=== PATIENT | male | born 1985 | race Caucasian/White ===

== ENCOUNTER 2023-04-18 20:18 | Emergency (ER) | payer BC ==
--- OUTSIDE RECORDS SUMMARY | 2023-04-18 20:22 | XMS REPORT | Continuity of Care Document ---
:1985 Author Organization [facility] t Address [address] [place] [address] [place] [id number] Care Team Providers Name Role Phone PABLO MONIQUE Primary Care Physician Unavailable PABLO MONIQUE Attending Clinician Unavailable KHADAR MCDOWELL Attending Clinician Unavailable IQRA BARBOUR Attending Clinician Unavailable Martinez SUH, Awilda Patel Attending Clinician [phone] Fadia Zarate Attending Clinician Jose Reza MD Attending Clinician Iqra Barbour OD Attending Clinician TE Attending Clinician Unavailable JOSE REZA Attending Clinician Unavailable Bianca Pham MD Attending Clinician BIANCA PHAM Attending Clinician Unavailable GAYATRI SHEPARD Attending Clinician Unavailable Gayatri Redman Attending Clinician LAB47 Attending Clinician Unavailable Pablo Monique MD Attending Clinician CONNOR HOANG Attending Clinician Unavailable Only, Adc Test Attending Clinician Unavailable Rigoberto Flores MD Attending Clinician Raúl Montero MD Attending Clinician Doctor Unassigned, Katie Attending Clinician Unavailable GAYATRI SHEPARD Admitting Clinician Unavailable Payers Payer Name Policy Type Policy Number Effective Date Expiration Date Vu holt [employer] OF 9 [id number] 2018 [place] ([place]-[employer] 00:00:00 CAPITATED) [facility] [id number] 2019 00:00:00 Problems Condition Condition Condition Status Onset Resolution Last Treating Co mments Source Name Details Category Date Date Treatment Clinician Date Current Current Disease Active 2021-08 Neena moderate moderate 1- Seybol 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:00: - major major 00 Externa depressive depressive l disorder disorder without without prior prior episode episode Myopia of Myopia of Disease Active 2020-08 Joseph sey both eyes both eyes 2-29 Seyb old 00:00: - 00 Externa l Stress at Stress at Disease Active Joseph sey work - Not work - Not 3-08 Se ybold Controlled Controlled 00:00: - 00 Externa l History of History of Disease Active K elsey vasectomy vasectomy 2-11 Seyb old 00:00: - 00 Externa l Bilateral Bilateral Disease Active Joseph sey varicocele varicocele 2-11 Se ybold s s 00:00: - 00 Externa l No known No known Disease Unive rs active active ity of problems problems [facility] Allergies, Adverse Reactions, Alerts Allergy Allergy Status Severity Reaction(s) Onset Inactive Treating Comm ents Source Name Type Date Date Clinician NO KNOWN Drug Active Univers ALLERGIE Class ity of S [facility] Social History Social Habit Start Date Stop Date Quantity Comments Source Exposure to Not sure University of SARS-CoV-2 [facility] (event) [place] Alcohol intake 2022-07-11 2022-07-11 Current drinker Elizabeth y Seybold - 00:00:00 00:00:00 of alcohol External (finding) Tobacco use and 2015-05-22 2015-05-22 Smokeless tobacco Ke arlyn Seybold - exposure 00:00:00 00:00:00 non-user External Sex Ass[birth year] At [birth year] Universit y of 00:00:00 00:00:00 [facility] Smoking Status Start Date Stop Date Source Former smoker 2017-04-20 00:00:00 2017-04-20 00:00:00 [facility] Never smoked tobacco Neena Seyb old - External Medications Ordered Filled Start Stop Current Ordering Indication Dosage Frequency Signature Comments Components Source Medication Medication Date Date Medication? Clinician (SIG) Name Name Sertraline 2021-08 Yes [id number] 50mg Take 1 K elsey HCl 50 MG 1-01 tablet (50 Seyb old oral Tablet 00:00: mg total) - 00 by mouth Externa daily l Sertraline 2021-08 Yes [id number] 50mg Take 1 K elsey HCl 50 MG 1-01 tablet (50 Seyb old oral Tablet 00:00: mg total) - 00 by mouth Externa daily l Doxycycline Yes [id number] 100mg Take 1 Neena Hyclate 100 01-06 [id number] tablet Seyb old MG oral 00:00: (100 mg Tablet 00 total) by mouth in the morning and 1 tablet (100 mg total) in the evening. Mupirocin Yes [id number] Apply 1 Neena (BACTROBAN) 01-06 [id number] applicatio Seybold 2 % apply 00:00: n externally 00 topically Ointment 2 times daily Doxycycline 2021- No [id number] 100mg Take 1 Neena Hyclate 100 01-06 [id number] tablet Sey bold MG oral 00:00: 00:00 (100 mg - Tablet 00 :00 total) by Externa mouth in l the morning and 1 tablet (100 mg total) in the evening. Mupirocin 2021- No [id number] Apply 1 Neena (BACTROBAN) 01-06 [id number] applicatio Seybold 2 % apply 00:00: 00:00 n - externally 00 :00 topically Exte rna Ointment 2 times l daily Ibuprofen 2021- No Take by Rama oliva (ADVIL OR) 4-20 04-20 mouth Seybold 08:18: 00:00 24 :00 Ibuprofen 2021-0 Yes [id number] 800mg Q.25D Take 1 Neena 800 MG oral 4-20 tablet Seybol d Tablet 00:00: (800 mg - 00 total) by Externa mouth l every 6 hours as needed for pain Take with Meals, STOP IF UPSET STOMACH Ibuprofen Yes [id number] 800mg Q.25D Take 1 Neena 800 MG oral 4-20 tablet Seybol d Tablet 00:00: (800 mg - 00 total) by Externa mouth l every 6 hours as needed for pain Take with Meals, STOP IF UPSET STOMACH Ibuprofen Yes [id number] 800mg Q.25D Take 1 Neena 800 MG oral 4-20 tablet Seybol d Tablet 00:00: (800 mg 00 total) by mouth every 6 hours as needed for pain Take with Meals, STOP IF UPSET STOMACH Ibuprofen Yes [id number] 800mg Q.25D Take 1 Neena 800 MG oral 4-20 tablet Seybol d Tablet 00:00: (800 mg 00 total) by mouth every 6 hours as needed for pain Take with Meals, STOP IF UPSET STOMACH Ibuprofen 2020-08 Yes Take by Kelse y (ADVIL OR) 2-29 mouth Seybold 08:26: 21 Ibuprofen 2020-08 Yes Take by Kelse y (ADVIL OR) 2-15 mouth Seybold 09:28: 08 Ibuprofen 2020-08 Yes Take by Kelse y (ADVIL OR) 2-06 mouth Seybold 13:20: 48 HYDROcodone 2020-08- No 1{tbl} 1 tablet, Univers -acetaminop 2-04 12-04 Oral, ity of hen (NORCO 20:30: 19:27 ONCE, 1 Joe as 5) 5-325 mg 00 :00 dose, On Medi sunny tablet 1 Sat Branch tablet 07/06/21 at 1430, CYRUS Acetaminoph 2020-08 Yes 1{tbl} Q4H Take 1 Ke lsey en-Codeine 2-04 tablet by Seyb old 300-30 MG 00:00: mouth oral Tablet 00 every 4 hours as needed Naproxen 2020-08 Yes 500mg Take 500 Rama ey 500 MG oral 2-04 mg by Seybold Tablet 00:00: mouth 2 00 times daily (with meals) Acetaminoph 2020-08 Yes 1{tbl} Q4H Take 1 Ke lsey en-Codeine 2-04 tablet by Seyb old 300-30 MG 00:00: mouth oral Tablet 00 every 4 hours as needed Naproxen 2020-08 Yes 500mg Take 500 Rama ey 500 MG oral 2-04 mg by Seybold Tablet 00:00: mouth 2 00 times daily (with meals) Acetaminoph 2020-08 Yes 1{tbl} Q4H Take 1 Ke lsey en-Codeine 2-04 tablet by Seyb old 300-30 MG 00:00: mouth oral Tablet 00 every 4 hours as needed Naproxen 2020-08 Yes 500mg Take 500 Rama ey 500 MG oral 2-04 mg by Seybold Tablet 00:00: mouth 2 00 times daily (with meals) Naproxen 2020-08 Yes 500mg Take 500 Rama ey 500 MG oral 2-04 mg by Seybold Tablet 00:00: mouth 2 00 times daily (with meals) naproxen 2020-08 Yes [id number] 500mg Take 1 Un ruthie (NAPROSYN) 2-04 tablet by ity of 500 mg 00:00: mouth 2 [place] tablet 00 (two) Medical times Branch daily with meals. acetaminoph 2020-08 Yes [id number] 1{tbl} Take 1 Un ruthie en-codeine 2-04 tablet by ity of 300-30 mg 00:00: mouth [place] tablet 00 every 4 Medical (four) Branch hours as needed for Pain (scale 7-10). Indication s: acute pain Naproxen 2020-08- No 500mg Take 500 Joseph sey 500 MG oral 2-04 06-06 mg by Seybol d Tablet 00:00: 00:00 mouth 2 00 :00 times daily (with meals) Acetaminoph 2020-08- No 1{tbl} Q4H Take 1 K elsey en-Codeine 2-04 04-20 tablet by Sey bold 300-30 MG 00:00: 00:00 mouth oral Tablet 00 :00 every 4 hours as needed Ibuprofen 2020-08 Yes Take by Kelse y (ADVIL OR) 1-04 mouth Seybold 15:21: 13 Amoxicillin 2020- No 1{tbl} Take 1 K elsey -Pot 9-03 11-04 tablet by Seybold Clavulanate 00:00: 00:00 mouth 2 875-125 MG 00 :00 times oral Tablet daily ibuprofen 2016-08 Yes 800mg Take 800 Uni vers (ADVIL) 200 1-08 mg by ity of mg tablet 19:26: mouth [place] 02 every 6 Medical (six) Branch hours as needed. ibuprofen 2017- Yes 800mg Take 800 Uni vers (ADVIL) 200 1-08 mg by ity of mg tablet 19:26: mouth [place] 02 every 6 Medical (six) Branch hours as needed. ibuprofen 2017- Yes 800mg Take 800 Uni vers (ADVIL) 200 1-08 mg by ity of mg tablet 13:26: mouth [place] 02 every 6 Medical (six) Branch hours as needed. ibuprofen 2017- Yes 800mg Take 800 Uni vers (ADVIL) 200 1-08 mg by ity of mg tablet 13:26: mouth [place] 02 every 6 Medical (six) Branch hours as needed. cephALEXin 2017-0 Yes 250mg Take 1 Univ ers (KEFLEX) 9-18 capsule by ity o f 250 mg 00:00: mouth [place] capsule 00 every 6 Medical (six) Branch hours. traMADOL 2017-0 Yes 50mg Take 1 Univers (ULTRAM) 50 9-18 tablet by ity of mg tablet 00:00: mouth [place] 00 every 6 Medical (six) Branch hours as needed for Pain (scale 7-10). cephALEXin 2017-0 Yes 250mg Take 1 Univ ers (KEFLEX) 9-18 capsule by ity o f 250 mg 00:00: mouth [place] capsule 00 every 6 Medical (six) Branch hours. traMADOL 2017-0 Yes 50mg Take 1 Univers (ULTRAM) 50 9-18 tablet by ity of mg tablet 00:00: mouth [place] 00 every 6 Medical (six) Branch hours as needed for Pain (scale 7-10). cephALEXin 2017-0 Yes 250mg Take 1 Univ ers (KEFLEX) 9-18 capsule by ity o f 250 mg 00:00: mouth [place] capsule 00 every 6 Medical (six) Branch hours. traMADOL 2017-0 Yes 50mg Take 1 Univers (ULTRAM) 50 9-18 tablet by ity of mg tablet 00:00: mouth [place] 00 every 6 Medical (six) Branch hours as needed for Pain (scale 7-10). cephALEXin 2017-0 Yes 250mg Take 1 Univ ers (KEFLEX) 9-18 capsule by ity o f 250 mg 00:00: mouth [place] capsule 00 every 6 Medical (six) Branch hours. traMADOL 2017-0 Yes 50mg Take 1 Univers (ULTRAM) 50 9-18 tablet by ity of mg tablet 00:00: mouth [place] 00 every 6 Medical (six) Branch hours as needed for Pain (scale 7-10). Immunizations Ordered Immunization Filled Immunization Date Status Commen ts Source Name Name Influenza Virus 2019-06-28 Completed Neena Se ybold Vaccine, No Preserv, 00:00:00 age 6 months and up Influenza Virus 2019-06-28 Completed Neena Se ybold Vaccine, Unspecified 00:00:00 Formulation Influenza Virus 2019-06-28 Completed Neena Se ybold Vaccine, No Preserv, 00:00:00 - Ex ternal age 6 months and up Influenza Virus 2019-06-28 Completed Neena Se ybold Vaccine, Unspecified 00:00:00 - Ex ternal Formulation Influenza Virus 2019-06-28 Completed Neena Se ybold Vaccine, No Preserv, 00:00:00 - Ex ternal age 6 months and up Influenza Virus 2019-06-28 Completed Neena Se ybold Vaccine, Unspecified 00:00:00 - Ex ternal Formulation Influenza Virus 2019-06-28 Completed Neena Se ybold Vaccine, No Preserv, 00:00:00 age 6 months and up Influenza Virus 2019-06-28 Completed Neena Se ybold Vaccine, Unspecified 00:00:00 Formulation Influenza Virus 2019-06-28 Completed Neena Se ybold Vaccine, No Preserv, 00:00:00 age 6 months and up Influenza Virus 2019-06-28 Completed Neena Se ybold Vaccine, Unspecified 00:00:00 Formulation Influenza Virus 2019-06-28 Completed Neena Se ybold Vaccine, No Preserv, 00:00:00 age 6 months and up Influenza Virus 2019-06-28 Completed Neena Se ybold Vaccine, Unspecified 00:00:00 Formulation Influenza Virus 2019-06-28 Completed Neena Se ybold Vaccine, No Preserv, 00:00:00 age 6 months and up Influenza Virus 2019-06-28 Completed Neena Se ybold Vaccine, Unspecified 00:00:00 Formulation Influenza Virus 2019-06-28 Completed Neena Se ybold Vaccine, No Preserv, 00:00:00 age 6 months and up Influenza Virus 2019-06-28 Completed Neena Se ybold Vaccine, Unspecified 00:00:00 Formulation Tdap- (Boostrix, 2016-04-09 Completed Neena puga Adacel) 00:00:00 Tdap- (Boostrix, 2016-04-09 Completed Neena S eybold Adacel) 00:00:00 - External Tdap- (Boostrix, 2016-04-09 Completed Neena S eybold Adacel) 00:00:00 - External Tdap- (Boostrix, 2016-04-09 Completed Neena S eybold Adacel) 00:00:00 Tdap- (Boostrix, 2016-04-09 Completed Neena S eybold Adacel) 00:00:00 Tdap- (Boostrix, 2016-04-09 Completed Neena S eybold Adacel) 00:00:00 Tdap- (Boostrix, 2016-04-09 Completed Neena S eybold Adacel) 00:00:00 Tdap- (Boostrix, 2016-04-09 Completed Neena S eybold Adacel) 00:00:00 Vital Signs Vital Name Observation Time Observation Value Comments Source Body height 2022-07-11 15:28:00 188 cm Neena olivabold - External Systolic blood 2022-06-03 20:38:00 116 mm[Hg] Neena Seybold - pressure External Diastolic blood 2022-06-03 20:38:00 82 mm[Hg] Kelse y Seybold - pressure External Heart rate 2022-06-03 20:38:00 65 /min Neena olivabold - External Body temperature 2022-06-03 20:38:00 36.28 Josselyn Rama ey Seybold - External Respiratory rate 2022-06-03 20:38:00 16 /min Rama ey Seybold - External Body weight 2022-06-03 20:38:00 98.431 kg Neena olivabold - External BMI 2022-06-03 20:38:00 27.86 kg/m2 Neena Womack eybold - External Systolic blood 2022-01-06 14:17:00 100 mm[Hg] Neena Seybold pressure Diastolic blood 2022-01-06 14:17:00 64 mm[Hg] Kelse y Seybold pressure Heart rate 2022-01-06 14:17:00 68 /min Neena Womack eybold Body temperature 2022-01-06 14:17:00 36.89 Josselyn Rama ey Seybold Respiratory rate 2022-01-06 14:17:00 16 /min Rama ey Seybold Body height 2022-01-06 14:17:00 188 cm Neena S eybold Body weight 2022-01-06 14:17:00 98.431 kg Neena S eybold BMI 2022-01-06 14:17:00 27.86 kg/m2 Neena S eybold Body height 2021-11-20 13:04:00 188 cm Neena S eybold Body weight 2021-11-20 13:04:00 93.895 kg Neena S eybold BMI 2021-11-20 13:04:00 26.58 kg/m2 Neena S eybold Systolic blood 2021-07-17 15:27:00 117 mm[Hg] Neena Seybold pressure Diastolic blood 2021-07-17 15:27:00 78 mm[Hg] Kelse y Seybold pressure Heart rate 2021-07-17 15:27:00 85 /min Neena S eybold Body temperature 2021-07-17 15:27:00 36.44 Josselyn Rama ey Seybold Body weight 2021-07-17 15:27:00 100.245 kg Neena S eybold BMI 2021-07-17 15:27:00 28.37 kg/m2 eNena S eybold Oxygen saturation in 2021-07-17 15:27:00 98 /min Neena Friedmanybold Arterial blood by Pulse oximetry Systolic blood 2021-07-08 19:14:00 122 mm[Hg] Neena Seybold pressure Diastolic blood 2021-07-08 19:14:00 74 mm[Hg] Kelse y Seybold pressure Heart rate 2021-07-08 19:14:00 72 /min Neena S eybold Respiratory rate 2021-07-08 19:14:00 16 /min Rama ey Seybold Body height 2021-07-08 19:14:00 188 cm Neena S eybold Body weight 2021-07-08 19:14:00 98.431 kg Neena S eybold BMI 2021-07-08 19:14:00 27.86 kg/m2 Neena S eybold Systolic blood 2021-07-06 18:56:00 119 mm[Hg] Univer sity of pressure [facility] Diastolic blood 2021-07-06 18:56:00 82 mm[Hg] Unive rsity of [facility] Heart rate 2021-07-06 18:56:00 55 /min Universi ty [facility] Body temperature 2021-07-06 18:56:00 36.67 Josselyn [facility] Respiratory rate 2021-07-06 18:56:00 18 /min [facility] Body height 2021-07-06 18:56:00 188 cm [facility] Body weight 2021-07-06 18:56:00 97.523 kg [facility] BMI 2021-07-06 18:56:00 27.60 kg/m2 [facility] Oxygen saturation in 2021-07-06 18:56:00 100 /min [facility] Arterial blood by [facility] Pulse oximetry Branch Systolic blood 2021-06-06 20:20:00 122 mm[Hg] Neena Seybold pressure Diastolic blood 2021-06-06 20:20:00 68 mm[Hg] Kelse y Seybold pressure Heart rate 2021-06-06 20:20:00 72 /min Neena olivaboedel Body temperature 2021-06-06 20:20:00 36.56 Josselyn Rama ey Seybold Respiratory rate 2021-06-06 20:20:00 16 /min Rama ey Seybold Body height 2021-06-06 20:20:00 188 cm Neena olivabold Body weight 2021-06-06 20:20:00 98.521 kg Neena Womack eybold BMI 2021-06-06 20:20:00 27.89 kg/m2 Neena olivaboedel Procedures Procedure Date / Time Performing Clinician Source Performed CLAVICLE RIGHT 2021-07-08 19:49:25 Bianca Pham XR RIBS 4+ VW LEFT 2021-07-06 19:59:15 Gayatri Shepard [facility] XR SHOULDER 2+ VW RIGHT 2021-07-06 19:59:15 Gayatri Shepard [facility] CONSENT/REFUSAL FOR 2021-07-06 18:49:56 Doctor [facility]assigned [facility] 2021-04-04 05:01:00 Doctor Unassalfredo, Mitesh [facility] AGREEMENTS AND [facility] AUTHORIZATIONS Encounters Start End Encounter Admission Attending Care Care Encounter Source Date/Time Date/Time Type Type Clinicians Facility Department ID 2022-11-26 2022-11-26 Outpatient NEENA MONIQUE [id number] Neena 00:00:00 00:00:00 PABLO Seybol d 2022-07-11 2022-07-11 Outpatient KHADAR MCDOWELL [id number] Neena 09:45:00 09:45:00 Seybol d 2022-06-11 2022-06-11 Outpatient NEENA BARBOUR [id number] Neena 00:00:00 00:00:00 IQRA Seybol d 2022-06-03 2022-06-03 Outpatient NEENA MONIQUE [id number] Neena 15:30:00 15:30:00 PABLO Seybol d 2022-05-20 2022-05-20 Outpatient KHADAR MCDOWELL [id number] Neena 08:00:00 08:00:00 Seybol d 2022-03-13 2022-03-13 Office Pedro Henriquez [id number] Neena 15:30:00 15:45:00 Visit Awilda Lou [id number] Se ybold Somogyi [id number] 2022-01-06 2022-01-06 Office Pedro Pepper [id number] Neena 09:00:00 09:30:00 Visit Fadia Lou [id number] Se ybold [id number] 2021-11-20 2021-11-20 Office GREGORIO Reza [id number] Neena 08:10:00 08:20:00 Visit Jose Elliott [id number] Se ybold [id number] 2021-07-31 2021-07-31 Office SERGIO Barbour [id number] Neena 08:40:00 09:00:00 Visit [facility] [id number] Se ybold [id number] 2021-07-31 2021-07-31 Outpatient CLTEC NEENA GREGORY [id number] Neena 08:30:00 08:30:00 Seybol d 2021-07-31 2021-07-31 Outpatient ANGLE NEENA GREGORY [id number] Neena 00:00:00 00:00:00 IQRA Seybol d 2021-07-17 2021-07-17 Office ELDER GREGORIO [id number] Neena 09:10:00 09:10:00 Visit JOSE [id number] Se ybold [id number] 2021-07-10 2021-07-10 Outpatient ANGLE NEENA GREGORY [id number] Neena 13:40:00 13:40:00 IQRA Seybol d 2021-07-08 2021-07-08 Outpatient NEENA GREGORY [id number] Neena 14:50:00 14:50:00 Seybol d 2021-07-08 2021-07-08 Outpatient ENEIDA NEENA GREGORY [id number] Neena 14:45:00 14:45:00 PABLO Seybol d 2021-07-08 2021-07-08 Outpatient NEENA GREGORY [id number] Neena 14:45:00 14:45:00 Seybol d 2021-07-08 2021-07-08 Office Kadyjordi SERGIO 1.2.840.114 [id number] Neena 13:30:00 13:50:00 Visit [facility] [id number] Se ybold [id number] 2021-07-08 2021-07-08 Outpatient NEENA GREGORY [id number] Neena 13:45:00 13:45:00 Seybol d 2021-07-08 2021-07-08 Outpatient NEENA MONIQUE [id number] Neena 00:00:00 00:00:00 PABLO Seybol d 2021-07-08 2021-07-08 Outpatient NAINDIPIKASHERICENEENA [id number] Neena 00:00:00 00:00:00 BIANCA Seybol d 2021-07-06 2021-07-06 Emergency X DREA, [facility] ERT [id number] Univers 12:58:00 15:07:00 GAYATRI ity of [facility] 2021-07-06 2021-07-06 Emergency [facility] [id number] Univers 12:58:00 15:07:00 Gayatri MCKEE [id number] i ty isaak KING 4.2.7.2.686 [facility] [id number] [facility] 084 Branch 2021-06-10 2021-06-10 Outpatient NEENA MONIQUE [id number] Neena 09:00:00 09:00:00 PABLO Seybol d 2021-06-08 2021-06-08 Outpatient LAB47 NEENA GREGORY [id number] Neena 08:55:00 08:55:00 Seybol d 2021-06-06 2021-06-06 Office GREGORIO Monique [id number] Neena 15:02:27 15:32:27 Visit Pablo [id number] Se ybold [id number] 2021-04-05 2021-04-05 Outpatient NEENA HOANG [id number] Neena 16:45:00 16:45:00 CONNOR Seybol d 2021-04-04 2021-04-04 Laboratory Only, Adc Test [facility] 1.2.840. [id number] Univers 08:59:29 09:14:29 Only Rigoberto Flores [id number] ity of Raúl Montero 4.2.7.2.686 [facility] [id number] [facility] 353 Branch 2021-04-04 2021-04-04 Outpatient R [facility] [id number] Univers 08:45:00 08:45:00 ity of [facility] 2021-04-04 2021-04-04 Orders Doctor PHILLIP [id number] Univers 00:00:00 00:00:00 Only Unassigned, CORBY [id number] ity of Katie [facility] 4.2.7.2.686 Joe as [id number] [facility] 009 Branch Results This patient has no known results.
[2023-04-18] MEDS ORDERED: HYDROCODONE/APAP 7.5/325 MG TAB ONE (20:52)
[2023-04-18] MEDS ORDERED: KETOROLAC 30 MG/ML INJ ONE (20:53)
--- NOTE | 2023-04-18 21:04 | RAD REPORT ---
EXAM DESCRIPTION: US - Scrotum Testicles - 04/18/2023 8:53 pm CLINICAL HISTORY: Left testicular table COMPARISON: None FINDINGS: Right testicle measures 4.9 x 3.2 x 3 1 centimeters. Echotexture is homogeneous. Normal bl ood flow Left testicle measures 4.4 x 3 x 3 centimeters. Echotexture is homogeneous. Normal blood flow The epididymides are normal in size and echotexture. Normal blood flow is seen. 5 millimeter right spermatocele Fat within left inguinal canal probably hernia IMPRESSION: Probable left inguinal hernia 5 millimeter right spermatocele
--- NOTE | 2023-04-18 22:16 | RAD REPORT ---
EXAM DESCRIPTION: CT - Stone Protocol - 04/18/2023 9:49 pm CLINICAL HISTORY: Abdominal pain. Left testicular pain COMPARISON: Testicular ultrasound same date TECHNIQUE: Computed axial tomography of the abdomen pelvis was obtained without oral or IV contrast. Lack of IV and oral contrast limits evaluation of solid organs, appendix, bowel, and vessels. Wynne l reformatted images were obtained and reviewed. All CT scans are performed using dose optimization technique as appropriate and may include automated exposure control or mA/KV adjustment according to patient size. FINDINGS: A renal calculus is not seen. An ureteral calculus is not noted. A bladder calculus is not present. No hydronephrosis The liver, spleen, pancreas and adrenals appear grossly normal There is no evidence of diverticulitis. The appendix appears normal A left inguinal hernia not visualized. Small umbilical hernia IMPRESSION: Negative for a genitourinary calculus
--- NOTE | 2023-04-18 22:32 | EDPHYS ---
Physician Documentation [facility] Name: Shane Agosto Age: 37 yrs Sex: Male : 1985 Arrival Date: 04/18/2023 Time: 20:18 Bed 5 Private MD: ED Physician Lior Aldridge HPI: 04/18 20:35 This 37 yrs old Male presents to ER via Unassigned with complaints of Testicular Pain, cp Testicular Swelling. 20:35 The patient presents with tenderness, of the left testicle, in the area of the cp epidydimis. Onset: The symptoms/episode began/occurred yesterday, and became worse today. Associated signs and symptoms: Pertinent negatives: abdominal pain, constipation, diarrhea, dysuria, fever, hematuria, vomiting. Severity of symptoms: in the emergency department the symptoms are unchanged, despite home interventions. Historical: - Allergies: 20:36 No Known Allergies; ha1 - Home Meds: 20:36 sertraline 50 mg oral tablet 1 tab [Active]; ha1 - PMHx: 20:36 Depressive disorder; ha1 - PSHx: 20:36 Vasectomy; ha1 - Immunization history:: Adult Immunizations unknown. - Social history:: Smoking status: Reported history of juuling and/or vaping. ROS: 20:40 Constitutional: Negative for body aches, chills, fever, poor PO intake. cp 20:40 Abdomen/GI: Negative for abdominal pain, nausea, vomiting, and diarrhea. 20:40 : Positive for testicular pain of the left testicle, Negative for injury or acute deformity, hematuria, burning with urination, penile discharge, penile pain. 20:40 Eyes: Negative for injury, pain, redness, and discharge. cp 20:40 ENT: Negative for drainage from ear(s), ear pain, sore throat, difficulty swallowing, difficulty handling secretions. 20:40 Respiratory: Negative for cough, shortness of breath, wheezing. 20:40 Back: Negative for pain at rest, pain with movement, radiated pain. 20:40 Neuro: Negative for altered mental status, dizziness, headache, weakness. 20:40 All other systems are negative. Exam: 20:45 Constitutional: The patient appears in no acute distress, alert, awake, cp non-diaphoretic, non-toxic, well developed, well nourished, uncomfortable. 20:45 Head/Face: Normocephalic, atraumatic. cp 20:45 Eyes: Periorbital structures: appear normal, Conjunctiva: normal, no exudate, no injection, Sclera: no appreciated abnormality, Lids and lashes: appear normal, bilaterally. 20:45 ENT: External ear(s): are unremarkable, Nose: is normal, Mouth: Lips: moist, Oral mucosa: pink and intact, moist, Posterior pharynx: is normal, airway is patent, no erythema, no exudate. 20:45 Chest/axilla: Inspection: normal. 20:45 Cardiovascular: Rate: normal, Rhythm: regular. 20:45 Respiratory: the patient does not display signs of respiratory distress, Respirations: normal, no use of accessory muscles, no retractions, labored breathing, is not present, Breath sounds: are clear throughout, no decreased breath sounds, no stridor, no wheezing. 20:45 Abdomen/GI: Inspection: abdomen appears normal, Bowel sounds: active, all quadrants, Palpation: soft, in all quadrants, nontender, in the right lower quadrant and left lower quadrant, rebound tenderness, is not appreciated. 20:45 Back: pain, is absent, ROM is normal. 20:45 : Male external genitalia: swelling: of the left testicle is noted, of the epididymis area, that is mild, tenderness, of the left testicle is noted, of the epididymis area, that is moderate. 20:45 Neuro: Orientation: to person, place \T\ time. Mentation: is normal, Motor: moves all fours, strength is normal, Sensation: is normal. Vital Signs: 20:25 BP 133 / 84; Pulse 81; Resp 16 S; Temp 98.2; Pulse Ox 100% on R/A; Weight 95.25 kg; ha1 Height 6 ft. 2 in. ; Pain 8/10; 21:00 BP 101 / 79; Pulse 72; Resp 18 S; Pulse Ox 97% on R/A; jw7 20:25 Body Mass Index 26.96 (95.25 kg, 187.96 cm) ha1 20:25 Pain Scale: Adult ha1 MDM: 20:26 Patient medically screened. cp 22:30 Data reviewed: vital signs, nurses notes, lab test result(s), radiologic studies, CT cp scan, ultrasound. 22:30 Differential diagnosis: appendicitis, urinary retention, prostatitis, urethritis. I cp considered the following discharge prescriptions or medication management in the emergency department Medications were administered in the Emergency Department. See MAR. Counseling: I had a detailed discussion with the patient and/or guardian regarding the historical points, exam findings, and any diagnostic results supporting the discharge/admit diagnosis, lab results, radiology results, the need for outpatient follow up, a family practitioner, to return to the emergency department if symptoms worsen or persist or if there are any questions or concerns that arise at home. Response to treatment: the patient's symptoms have markedly improved after treatment, and as a result, I will discharge patient. 04/18 20:32 Order name: Urinalysis W/Microscopic cp 04/18 20:27 Order name: US Scrotum Testicles; Complete Time: 21:24 cp 04/18 21:25 Interpretation: Report reviewed. cp 04/18 21:25 Order name: CT Stone Protocol; Complete Time: 22:18 cp Administered Medications: 20:53 Drug: Ketorolac IM 30 mg Route: IM; Site: right deltoid; jw7 22:50 Follow up: Response: No adverse reaction iw 20:53 Drug: Hydrocodone-Acetaminophen PO (7.5 mg-325 mg) 1 tabs Route: PO; jw7 22:50 Follow up: Response: No adverse reaction; Pain is decreased iw 22:50 Drug: Rocephin (cefTRIAXone) IM 1 grams Route: IM; Site: right gluteus; iw 22:55 Follow up: Response: No adverse reaction iw 22:50 Drug: AZITHromycin PO 1 grams Route: PO; iw 22:55 Follow up: Response: No adverse reaction iw Disposition: 04/19 03:35 Co-signature as Attending Physician, Lior Aldridge MD I agree with the assessment sp4 and plan of care. I reviewed the patient's care provided by the Advanced Practice Provider and agree with the diagnosis and treatment plan. Disposition Summary: 04/18/23 22:31 Discharge Ordered Location: Home cp Problem: new cp Symptoms: have improved cp Condition: Stable cp Diagnosis - Epididymitis - left cp Followup: cp - With: Private Physician - When: 2 - 3 days - Reason: Worsening of condition Discharge Instructions: - Discharge Summary Sheet cp - Epididymitis cp - Testicular Self-Exam cp Forms: - Medication Reconciliation Form cp - Thank You Letter cp - Antibiotic Education cp - Prescription Opioid Use cp - Patient Portal Instructions cp - Leadership Thank You Letter cp Prescriptions: - Doxycycline Hyclate 100 mg Oral Tablet - take 1 tablet by ORAL route every 12 hours; 20 tablet; Refills: 0, Product cp Selection Permitted - Diclofenac Sodium 75 mg Oral Tablet Sustained Release - take 1 tablet by ORAL route 2 times per day; 30 tablet; Refills: 0, Product cp Selection Permitted Signatures: Dispatcher [employer] EDLudmila Munguia RN RN Clifford Blackwell PA PA cp Valeria Foley RN RN jw7 Laura Ortega RN RN ha1 Lior Aldridge MD MD sp4 Corrections: (The following items were deleted from the chart) 04/18 21:04/17 20:40 Constitutional: Negative for body aches, chills, fever, poor PO intake, cp cp 04/18 21:58 04/17 20:40 : Positive for testicular pain of the left testicle, Negative for injury cp or acute deformity, hematuria, burning with urination, penile discharge, penile pain, cp 04/18 21:58 04/17 20:40 Abdomen/GI: Negative for abdominal pain, nausea, vomiting, and diarrhea, cp cp
--- NOTE | 2023-04-18 22:32 | ER ---
Nurse's Notes [facility] Name: Shane Agosto Age: 37 yrs Sex: Male : 1985 Arrival Date: 04/18/2023 Time: 20:18 Bed 5 Private MD: Diagnosis: Epididymitis-left Presentation: 04/18 20:25 Chief complaint: Patient states: I have a testicular swelling and pain that started one ha1 day ago. I had a vasectomy 14 years ago, and I do not know if it is related. 20:25 Coronavirus screen: Vaccine status: Patient reports being unvaccinated. Ebola Screen: ha1 No symptoms or risks identified at this time. Initial Sepsis Screen: Does the patient meet any 2 criteria? No. Patient's initial sepsis screen is negative. Does the patient have a suspected source of infection? No. Patient's initial sepsis screen is negative. Risk Assessment: Do you want to hurt yourself or someone else? Patient reports no desire to harm self or others. Onset of symptoms was April 17, 2023. 20:25 Method Of Arrival: Ambulatory ha1 20:25 Acuity: MARISOL 3 ha1 Triage Assessment: 20:25 General: Appears uncomfortable, Behavior is calm, cooperative. Pain: Complains of pain ha1 in left testicle Pain does not radiate. Pain currently is 8 out of 10 on a pain scale. Quality of pain is described as pressure, throbbing, Pain began 1 day ago. Aggravated by exercise, increased activity. Neuro: Level of Consciousness is awake, alert, obeys commands, Oriented to person, place, time, situation. Cardiovascular: Patient's skin is warm and dry. Respiratory: Airway is patent Respiratory effort is even, unlabored, Respiratory pattern is regular, symmetrical. GI: No signs and/or symptoms were reported involving the gastrointestinal system. : Reports Scrotal pain: sudden onset. Derm: Skin is pink, warm \T\ dry. Musculoskeletal: Circulation, motion, and sensation intact. Historical: - Allergies: 20:36 No Known Allergies; ha1 - Home Meds: 20:36 sertraline 50 mg oral tablet 1 tab [Active]; ha1 - PMHx: 20:36 Depressive disorder; ha1 - PSHx: 20:36 Vasectomy; ha1 - Immunization history:: Adult Immunizations unknown. - Social history:: Smoking status: Reported history of juuling and/or vaping. Screenin:39 Abuse screen: Denies threats or abuse. Denies injuries from another. Nutritional ha1 screening: No deficits noted. Tuberculosis screening: No symptoms or risk factors identified. 20:53 [facility] ED Fall Risk Assessment (Adult) History of falling in the last 3 months, jw7 including since admission No falls in past 3 months (0 pts) Score/Fall Risk Level 0 - 2 = Low Risk. Assessment: 20:54 General: see triage assessment . jw7 Vital Signs: 20:25 BP 133 / 84; Pulse 81; Resp 16 S; Temp 98.2; Pulse Ox 100% on R/A; Weight 95.25 kg; ha1 Height 6 ft. 2 in. ; Pain 8/10; 21:00 BP 101 / 79; Pulse 72; Resp 18 S; Pulse Ox 97% on R/A; jw7 20:25 Body Mass Index 26.96 (95.25 kg, 187.96 cm) ha1 20:25 Pain Scale: Adult ha1 ED Course: 20:22 Patient arrived in ED. jj6 20:25 Clifford Preston PA is PHCP. cp 20:25 Lior Aldridge MD is Attending Physician. cp 20:29 Valeria Foley RN is Primary Nurse. jw7 20:36 Triage completed. ha1 20:53 Arm band placed on. jw7 20:53 Patient has correct armband on for positive identification. Placed in gown. Bed in low jw7 position. Call light in reach. 20:55 US Scrotum Testicles In Process Unspecified. EDMS 21:50 CT Stone Protocol In Process Unspecified. EDMS 22:54 No provider procedures requiring assistance completed. Patient did not have IV access iw during this emergency room visit. 22:55 Provided Education on: . iw Administered Medications: 20:53 Drug: Ketorolac IM 30 mg Route: IM; Site: right deltoid; jw7 22:50 Follow up: Response: No adverse reaction iw 20:53 Drug: Hydrocodone-Acetaminophen PO (7.5 mg-325 mg) 1 tabs Route: PO; jw7 22:50 Follow up: Response: No adverse reaction; Pain is decreased iw 22:50 Drug: Rocephin (cefTRIAXone) IM 1 grams Route: IM; Site: right gluteus; iw 22:55 Follow up: Response: No adverse reaction iw 22:50 Drug: AZITHromycin PO 1 grams Route: PO; iw 22:55 Follow up: Response: No adverse reaction iw Medication: 22:55 VIS not applicable for this client. iw Outcome: 22:31 Discharge ordered by . cp 22:54 Discharged to home ambulatory, with family. iw 22:54 Condition: good 22:54 Discharge instructions given to patient, Instructed on discharge instructions, follow up and referral plans. medication usage, Demonstrated understanding of instructions, follow-up care, medications, Prescriptions given X 2. 22:55 Patient left the ED. iw Signatures: Dispatcher [employer] EDMS Ludmila Rowe RN RN iw Clifford Preston PA PA cp Jeffries, Jennifer jj6 Valeria Foley RN RN jw7 Laura Ortega RN RN ha1
[2023-04-18 22:41] LABS: Specific Gravity 1.006 (1.005-1.030); Urine Bacteria None Seen /HPF (<20); Urine Bilirubin NEGATIVE (Negative); Urine Blood Negative (Negative); Urine Clarity Clear (Clear); Urine Color Colorless (Yellow); Urine Glucose NEGATIVE (Negative); Urine Protein NEGATIVE (Negative); Urine RBC <5 /HPF (None Seen); Urine Urobilinogen Normal (Normal); Urine pH 6.5 (5.0-7.0)
[2023-04-18] MEDS ORDERED: AZITHROMYCIN 250 MG TAB ONE (22:54)
[2023-04-18] MEDS ORDERED: CEFTRIAXONE 1000 MG/VIAL ONE (22:54)
[2023-04-18] MEDS ORDERED: LIDOCAINE 1% MPF 5 ML VIAL ONE (22:54)
[2023-04-18 23:20] VITALS: TEMP 98.2
[2023-04-18 23:21] VITALS: BP 101/79; O2SAT 97
== END 2023-04-18 22:55 | disposition home or self-care (01) ==
LOC: ER 20:18
DX: N45.1 Epididymitis (principal)
CPT/HCPCS: 81001; 76377; 74176; 76870; 96372; 99284; J2001; J0696